=== PATIENT | female | born 1985 | race Caucasian/White ===

== ENCOUNTER 2016-04-16 09:18 | Emergency (ER) | payer MEDICAID ==
[~2016-04-16] VITALS: Wt 95.0 kg
[~2016-04-16 09:18] MED LIST: IBUP800T25 PO
[2016-04-16] MEDS ORDERED: METOCLOPRAMIDE 10 MG INJ IV STA (09:49)
[2016-04-16] MEDS ORDERED: SOD CHLORIDE 0.9% 1,000 ML IV STA (09:49)
[2016-04-16] MEDS ORDERED: DIPHENHYDRAMINE 50 MG INJ IV STA (09:49)
[2016-04-16] MEDS ORDERED: KETOROLAC 30 MG INJ IV STA (09:49)
[2016-04-16 10:00] LABS: URINE BLOOD (Dip) POC 3+ (NEGATIVE)
--- NOTE | 2016-04-16 10:37 | RADRPT ---
PROCEDURE: CT Brain without contrast. CLINICAL INDICATION: Headaches. TECHNIQUE: A CT of the brain was performed on multidetector high-resolution CT scanner utilizing a xial sections from the skull base through the vertex without contrast. One or more of the following dose reduction techniques were used: Automated exposure control, Adjustment of the mA and/or kV acc ording to patient size, and/or use of iterative reconstruction technique. DOSE: CTDI = 45 mGy and the DLP = 630 mGy-cm. COMPARISON: None available FINDINGS: No acute intracranial hemorrhage, significant mass effect or midline shift. The garner-white different iation is grossly preserved. The ventricles are normal in size for age. No significant opacification of the visualized paranasal sinuses or mastoids. Widened and partially empty appearance of the sella turcica. IMPRESSION: No acute intracranial hemorrhage or significant mass effect. Widened and partially empty appearance of the sella turcica. RPTAT: AA .Harry Hubbard MD, Date Time Electronically viewed and signed by .Harry Hubbard MD, on 04/16/2016 10:37 .T/
[2016-04-16] MEDS ORDERED: FIORICET PO (10:46)
--- NOTE | 2016-04-16 12:51 | ERD ---
DATE OF SERVICE: HISTORY OF PRESENT ILLNESS: The patient is a 31-year-old female complaining of a headache for a few days. The patient denies any trauma. She states that it is located in the frontal region of her h ead. It is a constant pain. She has taken [place] and tramadol, with no alleviation of symptoms. Maxim es any traumatic injuries. She has occasional nausea and vomiting, but no visual changes. No fevers , no abdominal pain. Denies any dysuria. Last normal menstrual period was 04/14/2016. PAST MEDICAL HISTORY: Denies any other medical problems. ALLERGIES: Denies allergies to medication. SURGICAL HISTORY: Denies. SOCIAL HISTORY: Denies. REVIEW OF SYSTEMS: A 12-point review of systems was done. Refer to the HPI for positives, all othe r systems are negative. PHYSICAL EXAMINATION: VITAL SIGNS: Temperature is 98.5, pulse 88, blood pressure is 129/72, respiratory rate 20, O2 satur ation 99% on room air. Pain intensity is 8/10. GENERAL: The patient is well-appearing, well-nourished, in no acute distress. NECK: C-spine is soft and supple. There is no meningismus. There is no cervical lymphadenopathy. No JVD. No bruits. No goiter. HEART: Regular rate and rhythm. No murmurs, clicks, rubs or gallops. No S3 or S4. NEURO: Alert and oriented. Cranial nerves 2-12 intact. Motor strength in all 4 extremities with 5/5 strength. Sensation grossly intact. Normal speech and gait. Babinski negative. DTR 2+ throughout. EMERGENCY ROOM COURSE: The patient had a brain CT done in the ER, which showed no acute intracrania l hemorrhage or significant mass effect. Widened and partial empty appearance of the sella turcica. The patient also had a urine dip checked in the ER which showed trace leukocytes, 3+ blood, and tra ce protein. The patient received a liter of normal saline, Benadryl, Reglan and Toradol. Upon reev aluation the patient stated her symptoms had dramatically improved. DISCHARGE: The patient is discharged stable. DIAGNOSIS: Headache. MEDICAL DECISION MAKING: I have a low suspicion for intracranial hemorrhage or mass effect, a low s uspicion for a neuro deficit, a low suspicion for meningitis, sepsis or bacterial etiology. The pat ient's symptoms are likely associated with a generalized headache. The patient was discharged stab le. The patient was given a prescription for Fioricet and told to follow up with her primary care w [facility] 2 days for reevaluation. The patient was told if symptoms progress or worsen, to return to the ER. All other questions were answered at the time of discharge. Discharge summary was given at the time of departure. Patient understood and complied with the plan. Dictated By: DWAIN ROSE for [employer]URT[employer]/ЕЛЕНА Conf#: [id number] DID#: [id number]
== END 2016-04-16 11:52 | disposition home or self-care (01) ==
LOC: FTE 09:18
DX: R51 Headache (principal)
CPT/HCPCS: 70450; 81003; 96374; 96375; J1200; J1885; J2765; J7030; Z7502

== ENCOUNTER 2018-11-18 08:16 | Emergency (ER) | payer MEDICAID, OTHER ==
[~2018-11-18] VITALS: Ht 152.4 cm; Wt 99.2 kg
[~2018-11-18 08:16] MED LIST changes: +CEPH-443 PO; +FIORICET PO; -IBUP800T25 PO; +IBUP800T48 PO
[2018-11-18 08:40] VITALS: BP 119/71; PULSE 73; RESP 16; Ht 152.4 cm; Wt 99.2 kg
[2018-11-18] MEDS ORDERED: FLUCONAZOLE 150 MG TAB PO ONE (09:00)
== END 2018-11-18 09:57 | disposition home or self-care (01) ==
LOC: FTE 08:16
DX: N39.0 Urinary tract infection, site not specified (principal); R10.2 Pelvic and perineal pain
CPT/HCPCS: 81003; 81025; 87591; Z7502; Z7610; 99283